=== PATIENT | male | born 1950 | race Asian ===

== ENCOUNTER 2021-02-07 13:21 | Emergency (ER) | payer OTHER ==
[~2021-02-07] VITALS: Ht 160 cm; Wt 56.6 kg
[2021-02-07] MEDS ORDERED: TETANUS, DIPHTHERIA, PERTUSSIS VAC/PF 0.5ML (>7YR OLD) IM ONE (16:15)
[2021-02-07] MEDS ORDERED: LIDOCAINE HCL/EPINEPHRINE 1%-EPI 1:100,000 50 ML VIAL INFIL ONE (19:30)
[2021-02-07] MEDS ORDERED: LIDOCAINE HCL/EPINEPHRINE 1%-EPI 1:100,000 20 ML VIAL INFIL ONE (19:30)
[2021-02-07 20:33] VITALS: BP 110/67
== END 2021-02-07 20:35 | disposition home or self-care (01) ==
LOC: ER 13:21
DX: S71.111A Laceration without foreign body, right thigh, initial encounter (principal); W26.1XXA Contact with sword or dagger, initial encounter; Y93.89 Activity, other specified; Y92.89 Other specified places as the place of occurrence of the external cause; Y99.8 Other external cause status
CPT/HCPCS: 12001; 73560; 90471; 90715; 99283; J3490